=== PATIENT | female | born 1980 | race Caucasian/White ===

== ENCOUNTER 2018-10-01 17:19 | Emergency (ER) | payer OTHER ==
[2018-10-01] MEDS ORDERED: SODIUM CHLORIDE 0.9% 1,000 ML IV STA (17:50)
[2018-10-01] MEDS ORDERED: SUMAtriptan SUCCINATE 6 MG/0.5 ML VIAL SQ STA (17:50)
[2018-10-01] MEDS ORDERED: diphenhydrAMINE 50 MG/ML 1 ML VIAL IVP STA (17:50)
[2018-10-01] MEDS ORDERED: METOCLOPRAMIDE 5 MG/ML 2 ML VIAL IVP STA (17:52)
--- NOTE | 2018-10-01 17:55 | ED ---
General Adult HPI - General Chief complaint: Headache Stated complaint: migraine Time Seen by Provider: 10/01/18 17:32 Source: patient Mode of arrival: ambulatory Limitations: no limitations - History of Present Illness Initial comments: Patient is a 38-year-old female presenting for headache. She states that on , she had a dental injection for procedures and shortly thereafter, she felt clammy, hot and dizzy as well as neck pain. She threw up one time thereafter. She went to [facility] where they did a CAT scan which is negative and treat her with analgesics and stated that she felt better after that. She does have a history of migraines but states that this and feels much different. The symptoms then returned again today. She denies any vision changes but admits to some lightheadedness and dizziness still. - Related Data Home Medications Medication Instructions Recorded Confirmed Ketorolac [Toradol] 10 mg PO Q6HR PRN 10/01/18 10/01/18 Propranolol HCl [Inderal LA] 160 mg PO DAILY 10/01/18 10/01/18 Allergies Allergy/AdvReac Type Severity Reaction Status Date / Time No Known Allergies Allergy Verified 10/01/18 17:55 Review of Systems ROS Statement: Those systems with pertinent positive or pertinent negative responses have been documented in the HPI. Constitutional: Negative for chills, fatigue and fever. HENT: Negative for congestion. Respiratory: Negative for chest tightness, shortness of breath and wheezing. Negative for cough Cardiovascular: Negative for chest pain and palpitations. Gastrointestinal: Negative for abdominal pain. Negative for abdominal distention , diarrhea, nausea and vomiting. Genitourinary: Negative for dysuria. Musculoskeletal: Negative for back pain, neck pain and neck stiffness. Skin: Negative for color change. Neurological: Positive for dizziness, negative speech difficulty, weakness. Positive for headache. Psychiatric/Behavioral: Negative for agitation and confusion. Negative for anxiety ROS Other: All systems not noted in ROS Statement are negative. Past Medical History Past Medical History: Renal Disease Additional Past Medical History / Comment(s): migraines, polycystic kidney disease History of Any Multi-Drug Resistant Organisms: None Reported Past Surgical History: No Surgical Hx Reported Past Psychological History: Depression Smoking Status: Never smoker Past Alcohol Use History: None Reported Past Drug Use History: None Reported General Exam - General Exam Comments Initial Comments: Constitutional: Pt appears well-developed and well-nourished. No distress. Head: Normocephalic and atraumatic. Eyes: EOM are normal. Neck: Normal range of motion. Neck supple. Cardiovascular: Normal rate, regular rhythm, S1 normal, S2 normal and normal heart sounds. Exam reveals no gallop and no friction rub. No murmur heard. Pulmonary/Chest: Effort normal and breath sounds normal. No tachypnea and no bradypnea. No respiratory distress. No wheezes or rales noted. Abdominal: Soft. Bowel sounds are normal. Pt exhibits no shifting dullness, no distension, no pulsatile liver, no fluid wave, no abdominal bruit and no ascites. There is no rigidity, no rebound, no guarding, no tenderness at McBurney's point and negative Richard's sign. There is no tenderness. Musculoskeletal: Normal range of motion. Neurological: Pt is alert and oriented to person, place, and time. No cranial nerve deficit. Skin: Skin is warm and dry. No rash noted. Pt is not diaphoretic. No erythema. No pallor. Psychiatric: Pt has a normal mood and affect. Pt behavior is normal. Thought content normal. Limitations: no limitations Course Vital Signs 10/01/18 10/02/18 17:23 00:09 Temperature 97.6 F 97.7 F Pulse Rate 60 59 L Respiratory 18 20 Rate Blood Pressure 146/55 120/70 O2 Sat by Pulse 96 99 Oximetry Procedures - Lumbar Puncture Consent Obtained: written consent Indication for Procedure: headache Patient Position: left lateral decubitus Skin Prep: Povidone-Iodine 1%, 0.5% Chlorhexidine/Alcohol Local Anesthetic Used: Lidocaine 1% Spinal Needle Gauge: 20G Spinal Needle Length: 3in Interspace Used: L4-L5 Fluid Initially Obtained: clear Complications: none Patient Tolerated Procedure: well Medical Decision Making - Medical Decision Making Because the patient's history of polycystic kidney disease, CTA of the head and neck was performed and showed no evidence of emergent pathology. Patient was also given analgesics and stated that this headache significantly improved. However, because the patient still had a headache and she has had multiple visits, the decision was mutually made to perform a lumbar puncture. Lumbar puncture CSF showed no evidence of significant bleeding which was confirmed verbally over the phone with Jose robertson who stated that first tube only had 3 RBCs. His explained to the patient that this is not appear to be a subarachnoid hemorrhage and is likely a migraine. It was also advised that she should follow up with neurology and patient stated that she also wanted to go home as she was feeling better.Explained all labs and diagnostic test results and that we will discharge the patient home and patient is to follow up with PCP in 1-2 days and return to the ED if symptoms worsen. Pt is agreeable to plan. - Lab Data Result diagrams: 10/01/18 19:09 10/01/18 19:09 Lab Results 10/01/18 10/01/18 10/01/18 Range/Units 18:08 19:09 19:09 WBC 12.2 H (3.8-10.6) k/uL RBC 3.95 (3.80-5.40) m/uL Hgb 11.8 (11.4-16.0) gm/dL Hct 37.1 (34.0-46.0) % MCV 93.9 (80.0-100.0) fL MCH 29.9 (25.0-35.0) pg MCHC 31.8 (31.0-37.0) g/dL RDW 12.9 (11.5-15.5) % Plt Count 154 (150-450) k/uL Neutrophils % 82 % Lymphocytes % 12 % Monocytes % 5 % Eosinophils % 0 % Basophils % 0 % Neutrophils # 10.0 H (1.3-7.7) k/uL Lymphocytes # 1.4 (1.0-4.8) k/uL Monocytes # 0.7 (0-1.0) k/uL Eosinophils # 0.0 (0-0.7) k/uL Basophils # 0.0 (0-0.2) k/uL PT (9.0-12.0) sec INR (<1.2) APTT (22.0-30.0) sec Sodium 140 (137-145) mmol/L Potassium 3.9 (3.5-5.1) mmol/L Chloride 112 H (98-107) mmol/L Carbon Dioxide 24 (22-30) mmol/L Anion Gap 4 mmol/L BUN 20 H (7-17) mg/dL Creatinine 0.68 (0.52-1.04) mg/dL Est GFR (CKD-EPI)AfAm >90 (>60 ml/min/1.73 sqM) Est GFR (CKD-EPI)NonAf >90 (>60 ml/min/1.73 sqM) Glucose 98 (74-99) mg/dL Calcium 8.4 (8.4-10.2) mg/dL Urine HCG, Qual Not Detected (Not Detectd) CSF Tube Number CSF Volume CSF Appearance CSF Color CSF RBC (0-10) u/L CSF Tot Nucleated Cells (0-5) u/L CSF Glucose (40-70) mg/dL CSF Total Protein (12-60) mg/dL 10/01/18 10/01/18 Range/Units 19:09 22:15 WBC (3.8-10.6) k/uL RBC (3.80-5.40) m/uL Hgb (11.4-16.0) gm/dL Hct (34.0-46.0) % MCV (80.0-100.0) fL MCH (25.0-35.0) pg MCHC (31.0-37.0) g/dL RDW (11.5-15.5) % Plt Count (150-450) k/uL Neutrophils % % Lymphocytes % % Monocytes % % Eosinophils % % Basophils % % Neutrophils # (1.3-7.7) k/uL Lymphocytes # (1.0-4.8) k/uL Monocytes # (0-1.0) k/uL Eosinophils # (0-0.7) k/uL Basophils # (0-0.2) k/uL PT 10.7 (9.0-12.0) sec INR 1.0 (<1.2) APTT 24.9 (22.0-30.0) sec Sodium (137-145) mmol/L Potassium (3.5-5.1) mmol/L Chloride (98-107) mmol/L Carbon Dioxide (22-30) mmol/L Anion Gap mmol/L BUN (7-17) mg/dL Creatinine (0.52-1.04) mg/dL Est GFR (CKD-EPI)AfAm (>60 ml/min/1.73 sqM) Est GFR (CKD-EPI)NonAf (>60 ml/min/1.73 sqM) Glucose (74-99) mg/dL Calcium (8.4-10.2) mg/dL Urine HCG, Qual (Not Detectd) CSF Tube Number 4 CSF Volume 0.8 CSF Appearance Clear CSF Color Colorless CSF RBC 6 (0-10) u/L CSF Tot Nucleated Cells 1 (0-5) u/L CSF Glucose 58 (40-70) mg/dL CSF Total Protein 44 (12-60) mg/dL Disposition Clinical Impression: Headache Disposition: HOME SELF-CARE Condition: Good Instructions (If sedation given, give patient instructions): Acute Headache (ED ) Is patient prescribed a controlled substance at d/c from ED?: No Referrals: Justyn Carter MD [Primary Care Provider] - 1-2 days Time of Disposition: 00:04
[2018-10-01 19:24] LABS: Basophils % (A) 0 %; Eosinophils % (A) 0 %; HCT 37.1 % (34.0-46.0); HGB 11.8 gm/dL (11.4-16.0); Lymphocytes # (A) 1.4 k/uL (1.0-4.8); Lymphocytes % (A) 12 %; MCH 29.9 pg (25.0-35.0); MCHC 31.8 g/dL (31.0-37.0); MCV 93.9 fL (80.0-100.0); Mean Platelet Volume 7.9; Monocytes # (A) 0.7 k/uL (0-1.0); Monocytes % (A) 5 %; Neutrophils % (A) 82 %; Platelet Count 154 k/uL (150-450); RBC 3.95 m/uL (3.80-5.40); RDW 12.9 % (11.5-15.5); WBC 12.2 k/uL (3.8-10.6)
[2018-10-01 19:34] LABS: Partial Thromboplastin Time 24.9 sec (22.0-30.0); Prothrombin Time 10.7 sec (9.0-12.0)
[2018-10-01 19:56] LABS: Anion Gap 4 mmol/L; Blood Urea Nitrogen 20 mg/dL (7-17); Calcium 8.4 mg/dL (8.4-10.2); Carbon Dioxide 24 mmol/L (22-30); Chloride 112 mmol/L (98-107); Glucose 98 mg/dL (74-99); Potassium 3.9 mmol/L (3.5-5.1); Sodium 140 mmol/L (137-145)
--- NOTE | 2018-10-01 20:55 | CT ---
EXAMINATION TYPE: CT angio head neck DATE OF EXAM: 10/01/2018 HISTORY: SANCHES and neck pain COMPARISON: NONE CT DLP: 281.8 mGycm. Automated Exposure Control for Dose Reduction was Utilized. TECHNIQUE: CTA scan of the neck is performed with IV Contrast, patient injected with 65 mL of Isovue 370, axial images are obtained, coronal and sagittal reformatted images are reviewed. Three-D recons tructed images are created on an independent workstation and reviewed. FINDINGS: There is a conventional three-vessel branch pattern of the aortic arch. The vertebral arteries are no rmal course without evidence of dissection. Vertebral arteries appear patent and codominant. The basi lar artery is unremarkable. Posterior circulation is also unremarkable. Left posterior communicating artery is either congenitally absent or extremely diminutive in caliber. The common carotid arteries, carotid bulbs and cervical portions of the internal carotid arteries are patent without evidence of hemodynamically significant stenosis, occlusion, or dissection. Slightly prominent infundibulum is se en of the right internal carotid artery terminus. No sizable aneurysm is seen of the major intracrani al vasculature. IMPRESSION: No hemodynamically significant stenosis, vascular occlusion, aneurysmal outpouching, nor dissection of the major arterial vasculature of the head or neck.
[2018-10-01 23:21] LABS: Glucose,CSF 58 mg/dL (40-70); Total Protein,CSF 44 mg/dL (12-60)
[2018-10-01 23:58] LABS: Appearance,CSF Clear; CSF Tube Number 4; CSF Tube Volume 0.8
[2018-10-01 23:59] LABS: Nucleated Cells, CSF 1 u/L (0-5); Red Blood Cell,CSF 6 u/L (0-10)
[2018-10-02 00:10] VITALS: BP 120/70; PULSE 59; RESP 20; TEMP 97.7
[2018-10-04 10:36] LABS: VDRL, Qualitative CSF Nonreactive (Nonreactive)
== END 2018-10-02 00:17 | disposition home or self-care (01) ==
LOC: EC 17:19
DX: R51 Headache (principal); R42 Dizziness and giddiness; M54.2 Cervicalgia; Z79.899 Other long term (current) drug therapy; Z87.448 Personal history of other diseases of urinary system
CPT/HCPCS: 99284 ×2; 62270 ×2; 96374 ×2; 96375 ×2; 96361 ×6; 96372 ×2; 36415; 86592; 84157; 80048; 82945; 85025; 85610; 85730; 89050; 81025; 87070; 87205; 70496; 70498; J3030; J1200; J2765; Q9967

== ENCOUNTER → 2018-11-24 | Outpatient (CLI) | payer OTHER ==
--- NOTE | 2018-11-24 14:07 | MR ---
EXAMINATION TYPE: MR brain/cspine wo DATE OF EXAM: 11/24/2018 COMPARISON: CTA head and neck October 01, 2018. HISTORY: Migraines, neck pain x 3 mos TECHNIQUE: Multiplanar, multisequence imaging of the brain and brainstem as well as the cervical spin e are all performed without IV contrast. FINDINGS: BRAIN: Diffusion weighted images demonstrate no evidence of a recent infarct or other diffusion abnormality. There is no extraaxial fluid collection or significant white matter signal abnormality. The ventricu lar system and cisternal spaces are normal in size and appearance. The brain volume is age appropria te. Midline structures demonstrate normal morphology. The craniocervical junction appears within normal limits. Normal vascular flow voids are present. The visualized sinuses are clear and the globes are i ntact. Some patchy increased fluid signal right mastoid air cells remains present axial image 8. Nasa l septum is deviated to left of midline. IMPRESSION: Possible right-sided mastoiditis, correlate clinically otherwise unremarkable study. MRI CERVICAL SPINE: FINDINGS: Sagittal images of the cervical spine show the craniocervical junction to remain within nor mal limits. The cervical and upper thoracic spinal cord is normal in course, caliber, and signal. V ertebral alignment is stable and satisfactory. The vertebral body and intravertebral disk heights ar e normal. Posterior disc herniations are noted C5-C6 and C6-C7 level on sagittal images effacing ante rior thecal sac. No significant spurring is seen. The bone marrow signal intensity is within normal l imits. Axial images show the C2-C3, C3-C4, and C4-C5 levels all to appear within normal limits. Axial images at the C5-C6 level show broad-based left paracentral disc protrusion effacing anterolate ral thecal sac, bilateral neural foramina are patent. Axial images at the C6-C7 level shows central disc protrusion effacing anterior thecal sac on axial i mage 17. Bilateral neural foramina are patent. Axial images at C7-T1 level are felt within normal limits. IMPRESSION: Disc herniations at C5-C6 and C6-C7 level are noted.
== END | disposition home or self-care (01) ==
LOC: RADMRIMAIN 12:05
PROVIDERS: ATTEND Psychiatry & Neurology Neurology
DX: M50.222 Other cervical disc displacement at C5-C6 level (principal); M54.81 Occipital neuralgia; G43.109 Migraine with aura, not intractable, without status migrainosus
CPT/HCPCS: 70551; 72141